=== PATIENT | female | born 1995 | race Caucasian/White ===

== ENCOUNTER 2018-02-01 22:10 | Emergency (ER) | payer MEDICAID ==
[~2018-02-01] VITALS: Ht 154.9 cm; Wt 55.0 kg
[2018-02-02 00:27] LABS: BASOPHILS % 0.4 % (0.0-2.0); EOSINOPHILS % 0.1 % (0.0-5.0); HEMATOCRIT. 36.6 % (36.0-48.0); HEMOGLOBIN. 11.8 g/dL (12.0-16.0); MEAN CORPUSCULAR HEMOGLOBIN 23.3 pg (28.0-32.0); MEAN CORPUSCULAR VOLUME 72.3 fL (81.0-99.0); MONOCYTES % 8.2 % (2.0-8.0); NEUTROPHILS % 78.3 % (40.0-76.0); PLATELET 317 x1000/uL (130-400); RED BLOOD CELL COUNT 5.06 mill/uL (4.2-5.4); RED CELL DISTRIBUTION WIDTH 16.8 % (11.6-14.6)
[2018-02-02 00:30] LABS: CHLORIDE 101 mEq/L (98-107)
[2018-02-02 00:31] LABS: INR 1.1; PROTHROMBIN TIME 10.9 sec (9.1-11.1)
[2018-02-02 00:54] LABS: CLARITY URINE CLOUDY (CLEAR); COLOR URINE YELLOW (YELLOW); KETONES URINE 2+ (NEGATIVE); LEUKOCYTE ESTERASE URINE 1+ (NEGATIVE); NITRITE URINE NEGATIVE (NEGATIVE); OCCULT BLOOD URINE NEGATIVE (NEGATIVE); PROTEIN URINE TRACE (NEGATIVE); SPECIFIC GRAVITY URINE 1.022 (1.005-1.030)
[2018-02-02] MEDS ORDERED: ONDANSETRON HCL 4MG/2ML INJ IV STA (00:58)
[2018-02-02] MEDS ORDERED: MORPHINE SULFATE 4 MG/ML CPJ (NOT FOR IM USE) IV STA (00:58)
[2018-02-02] MEDS ORDERED: SODIUM CHLORIDE 0.9% 1,000 ML IV ONE (00:58)
[2018-02-02 01:17] LABS: HCG SCREEN NEGATIVE
[2018-02-02] MEDS ORDERED: KETOROLAC 15MG/ML VIAL IV ONE (04:30)
[2018-02-02] MEDS ORDERED: ACETAMINOPHEN 325MG TABLET PO ONE (04:30)
[2018-02-02] MEDS ORDERED: CEFTRIAXONE 1 G PREMIX 50 ML IV ONE (04:30)
[2018-02-02 05:30] VITALS: BP 110/66
[2018-02-02] MEDS ORDERED: IOHEXOL-300 100 ML BOTTLE ONE (06:36)
== END 2018-02-02 05:43 | disposition home or self-care (01) ==
LOC: ER 22:10
DX: N12 Tubulo-interstitial nephritis, not specified as acute or chronic (principal)
CPT/HCPCS: 36415; 74177; 80053; 81003; 81025; 83690; 84703; 85025; 85610; 96361; 96365; 96375; 99285; J0696; J1885; J2270; J2405; J7030; Q9967

== ENCOUNTER 2018-02-12 23:06 | Emergency (ER) | payer MEDICAID ==
[~2018-02-12] VITALS: Ht 162.6 cm; Wt 57.4 kg
[2018-02-13 00:28] VITALS: BP 115/78
== END 2018-02-13 02:24 | disposition left against medical advice (07) ==
LOC: ER 23:06
DX: Z53.21 Procedure and treatment not carried out due to patient leaving prior to being seen by health care provider (principal)